=== PATIENT | male | born 2000 | race Caucasian/White ===

== ENCOUNTER 2022-02-23 18:37 | Emergency (ER) | payer OTHER ==
[~2022-02-23] VITALS: Ht 182.9 cm; Wt 83.9 kg
[~2022-02-23 18:37] MED LIST: BENADRYL
--- NOTE | 2022-02-23 19:25 | NUR ---
SEEN AND EXAMINED BY ADELINA, WITH ORDERS, AND CARRIED OUT
[2022-02-23] MEDS ORDERED: PRED20TA5 PO (19:30)
[2022-02-23 19:31] VITALS: BP 116/74
--- NOTE | 2022-02-23 19:34 | NUR ---
TO LOBBY A/W BED AMBULATORY
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
[2022-02-23 19:46] VITALS: BP 116/74
--- NOTE | 2022-02-23 19:46 | NUR ---
Patient discharged with v/s stable. Written and verbal after care instructions given and explained. Patient alert, oriented and verbalized understanding of instructions. Ambulatory with steady gait. All questions addressed prior to discharge. ID band removed. Patient advised to follow up with PMD. Rx of DELTASONE, given. Patient educated on indication of medication including possible reaction and side effects. Opportunity to ask questions provided and answered.
== END 2022-02-23 19:46 | disposition home or self-care (01) ==
LOC: MED 18:37
DX: U07.1 COVID-19 (principal); J02.9 Acute pharyngitis, unspecified; Z79.899 Other long term (current) drug therapy
CPT/HCPCS: 87081; 99283

== ENCOUNTER 2022-11-15 12:39 | Emergency (ER) | payer OTHER ==
[~2022-11-15] VITALS: Ht 182.9 cm; Wt 80.7 kg
[~2022-11-15 12:39] MED LIST changes: +PRED20TA5 PO
[2022-11-15 13:07] VITALS: BP 109/62
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
[2022-11-15] MEDS ORDERED: IBUPROFEN 600 MG TAB PO ONE (13:35)
--- NOTE | 2022-11-15 13:51 | NUR ---
report to matri reece and lina roman
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
[2022-11-15] MEDS ORDERED: CYCL-711 PO (14:53)
[2022-11-15] MEDS ORDERED: IBUP-2213 PO (14:53)
[2022-11-15] MEDS ORDERED: IBUPROFEN 600 MG TAB ONE (15:05)
[2022-11-15 15:40] VITALS: BP 106/63
--- NOTE | 2022-11-15 15:41 | NUR ---
Patient discharged with v/s stable. Written and verbal after care instructions given and explained. Patient alert, oriented and verbalized understanding of instructions. Ambulatory with steady gait. All questions addressed prior to discharge. ID band removed. Patient advised to follow up with PMD. Rx of FLEXERIL, IBUPROGEN given.. Opportunity to ask questions provided and answered.
== END 2022-11-15 15:40 | disposition home or self-care (01) ==
LOC: MED 12:39
DX: S16.1XXA Strain of muscle, fascia and tendon at neck level, initial encounter (principal); Z79.899 Other long term (current) drug therapy; V49.59XA Passenger injured in collision with other motor vehicles in traffic accident, initial encounter; Y93.89 Activity, other specified; Y92.89 Other specified places as the place of occurrence of the external cause; Y99.8 Other external cause status
CPT/HCPCS: 72040; 99283

== ENCOUNTER 2023-10-16 01:20 | Emergency (ER) | payer MEDICAID, OTHER ==
[~2023-10-16] VITALS: Ht 180.3 cm; Wt 83.9 kg
[~2023-10-16 01:20] MED LIST changes: +CYCL-711 PO; +IBUP-2213 PO
[2023-10-16 01:33] VITALS: BP 116/58; PULSE 61; RESP 20; TEMP 98; O2SAT 98
[2023-10-16 01:58] LABS: APPEARANCE,URINE CLEAR (CLEAR); BILIRUBIN,URINE 1+ (NEGATIVE); BLOOD, URINE NEGATIVE (NEGATIVE); COLOR,URINE ORANGE (YELLOW); LEUKOCYTE ESTERASE ,URINE NEGATIVE (NEGATIVE); NITRITE, URINE POSITIVE (NEGATIVE); PH,URINE 6.5 (5.0-9.0); PROTEIN,URINE TRACE (NEGATIVE); UGLUCOSE TRACE (NEGATIVE)
[2023-10-16] MEDS ORDERED: NITR100C7 PO (01:59)
[2023-10-16 02:00] VITALS: BP 116/58; PULSE 61; RESP 20; TEMP 98; O2SAT 98
[2023-10-16 02:06] LABS: ICTOTEST POSITIVE (NEGATIVE)
[2023-10-16 02:09] LABS: BACTERIA,URINE 10-30 (MOD) /HPF (None Seen); MUCUS,URINE 1+ /LPF (None Seen); RBC,URINE 0-5 /HPF (0-5); SQUAMOUS EPITHELIAL CELL,UR 0-3 (FEW) /LPF (0-3 (FEW))
== END 2023-10-16 02:00 | disposition home or self-care (01) ==
LOC: MED 01:20
DX: N39.0 Urinary tract infection, site not specified (principal); Z79.1 Long term (current) use of non-steroidal anti-inflammatories (NSAID); Z79.899 Other long term (current) drug therapy
CPT/HCPCS: 81001; 87086; 99283

== ENCOUNTER 2024-01-22 18:03 | Emergency (ER) | payer SELFPAY ==
[~2024-01-22] VITALS: Ht 182.9 cm; Wt 86.2 kg
[~2024-01-22 18:03] MED LIST changes: +NITR100C7 PO
[2024-01-22 19:02] VITALS: BP 141/81; PULSE 91; RESP 16; TEMP 97.9; O2SAT 95
[2024-01-22 21:21] VITALS: O2SAT 95
[2024-01-22 22:23] LABS: APPEARANCE,URINE CLEAR (CLEAR); BILIRUBIN,URINE NEGATIVE (NEGATIVE); BLOOD, URINE NEGATIVE (NEGATIVE); COLOR,URINE YELLOW (YELLOW); LEUKOCYTE ESTERASE ,URINE NEGATIVE (NEGATIVE); NITRITE, URINE NEGATIVE (NEGATIVE); PROTEIN,URINE NEGATIVE (NEGATIVE); UGLUCOSE NEGATIVE (NEGATIVE)
[2024-01-22 22:51] VITALS: BP 141/81; PULSE 91; RESP 16; TEMP 97.9; O2SAT 95
== END 2024-01-22 22:52 | disposition home or self-care (01) ==
LOC: MED 18:03
DX: R30.0 Dysuria (principal); R10.30 Lower abdominal pain, unspecified; Z79.899 Other long term (current) drug therapy
CPT/HCPCS: 81003; 99283